=== PATIENT | female | born 1990 | race Caucasian/White ===

== ENCOUNTER 2025-02-01 11:21 | Outpatient (CLI) | payer OTHER, SELFPAY | END 2025-02-01 11:22 | disposition home or self-care (01) | LOC: LKVREF 11:22 | PROVIDERS: Visit Provider Emergency Medicine | DX: R10.31 Right lower quadrant pain (principal) | CPT/HCPCS: 86140 ==

== ENCOUNTER 2025-02-01 12:35 | Outpatient (CLI) | payer OTHER, SELFPAY ==
--- NOTE | 2025-02-01 13:30 | CRLHL7_ITS ---
For Patients: As a result of the Century Cures Act, medical imaging exams and procedure reports are released immediately into your electronic medical record. You may view this report before your referring provider. If you have questions, please contact your health care provider. INDICATION: Right lower quadrant pain TECHNIQUE: CT abdomen and pelvis acquired with 55 cc Isovue 370 IV contrast. COMPARISON: None. FINDINGS: Lower chest: Unremarkable. Liver: Unremarkable. Gallbladder and bile ducts: Unremarkable. Pancreas: Unremarkable. Spleen: Unremarkable. Adrenal glands: Unremarkable. Kidneys: No hydronephrosis or nephrolithiasis. GI tract: No obstruction. Mildly hyperdense appearance of the appendix likely related to internal appendicoliths, but no evidence of appendicitis. Vasculature: Abdominal aorta is normal in caliber. Mesenteric arteries are patent. Mildly prominent left ovarian vein measuring 6 millimeters diameter and prominent parametrial vessels can be seen as sequela of prior or with pelvic congestion syndrome. Lymph nodes: No lymphadenopathy. Peritoneum/Abdominal Wall: Unremarkable. Pelvis: Right corpus luteum. Bones: Unremarkable for age. IMPRESSION: No acute intra-abdominal or intrapelvic pathology to explain symptoms. There is a corpus luteum in the right ovary, which can occasionally cause pain. Please note that all CT scans at this facility use dose modulation, iterative reconstruction, and/or weight-based dosing when appropriate to reduce radiation dose to as low as reasonably achievable. Dictated by Shey Tello MD @ 02/01/2025 1:43:30 PM (Electronically Signed)
== END 2025-02-01 12:36 | disposition home or self-care (01) ==
PROVIDERS: Visit Provider Emergency Medicine
DX: R10.31 Right lower quadrant pain (principal); N83.11 Corpus luteum cyst of right ovary
CPT/HCPCS: 74177; Q9967